=== PATIENT | male | born 1950 | race Caucasian/White ===

== ENCOUNTER → 2018-05-02 | Outpatient (CLI) | payer MEDICARE ==
[2018-05-02 10:35] LABS: CREATININE 1.2 mg/dL (0.6-1.3)
== END ==
LOC: M.LAB 09:54 → M.CT 11:00
PROVIDERS: Family Medicine
DX: K80.20 Calculus of gallbladder without cholecystitis without obstruction (principal); I25.84 Coronary atherosclerosis due to calcified coronary lesion; J92.9 Pleural plaque without asbestos

== ENCOUNTER → 2018-06-26 | Outpatient (CLI) | payer MEDICARE ==
--- NOTE | ~2018-06-26 | TST ---
[facility] [address] [place] [address] TREADMILL STRESS TEST Name: JACQUE CLIFFORD Room: [facility]#: [id number] Admission: 06/26/18 Attend Phys: Dixon White, Discharge: Date of : 46 Date of Service: 06/26/18 1551 Report #: [id number] THIS REPORT FOR: //name// CC: Dixon White DATE OF SERVICE: 06/26/2018 EXERCISE STRESS TEST REFERRING PHYSICIAN: Dixon White DO INDICATION: Coronary artery disease, history of hypertension, diabetes under risk factors. MEDICATIONS: Include aspirin, amlodipine, olmesartan, and atorvastatin. EXERCISE STRESS TEST: The patient exercised on the standard Brant protocol. Test was terminated due to fatigue. Resting heart rate is 84, resting blood pressure 131/87, peak blood pressure 199/108, peak heart rate 146, recovery blood pressure 140/86, heart rate 98. The patient achieved 90% of the expected maximum heart rate. The patient exercised for 6 minutes and 7 METs. Resting ECG is normal. During exercise, there is artifact, but there are no diagnostic ST segment changes for ischemia. There were no arrhythmias. Recovery was normal. IMPRESSION: 1. Clinical portion negative. 2. Electrocardiographic portion negative. 3. Exercise capacity is fair. 4. Exercise ECG portion was negative for ischemia. CONCLUSION: This ECG-only stress test is negative for ischemia at the level of exercise achieved. By: [id number] Wilder Wilkerson MD, FACC /nt
== END ==
LOC: M.CRD 14:37
DX: I25.10 Atherosclerotic heart disease of native coronary artery without angina pectoris (principal); I10 Essential (primary) hypertension